=== PATIENT | male | born 1965 | race Caucasian/White ===

== ENCOUNTER 2021-01-09 06:24 | Observation (INO) | payer OTHER, MEDICAID, SELFPAY ==
[2021-01-09] VITALS (26 sets, daily range): BP systolic 92–145; BP diastolic 62–82; PULSE 57–86; RESP 12–23; TEMP 36.2–36.9; O2SAT 92–100; BMI 35.2
--- NOTE | 2021-01-09 06:29 | ED.GENADULT ---
HPI - General Adult <Stiven Fernandes DO - Last Filed: 01/09/21 18:00> General Chief complaint: Allergic Reaction Stated complaint: poss allergic reaction, dizzy Time Seen by Provider: 01/09/21 06:27 Source: patient and family Mode of arrival: Wheelchair Limitations: no limitations History of Present Illness HPI narrative: Patient is a 55 year old male who arrived to the emergency department by private vehicle with his for evaluation of what he thought was initially was an allergic reaction. He states that he woke up this morning with some abdominal discomfort. No nausea or vomiting. No problems breathing. Was a little nauseous. [place] very poorly and so asked his to bring him into the emergency department. He does not remember getting out of the car and his states that he was seemed very confused and passed out prior to triage. He is part breath to the exam room by wheelchair. Unsure as to why he thought he was having an allergic reaction. His only new medications were lidocaine patches and diclofenac but he has been on these medicines for greater than 1 month. Other than the abdominal discomfort denies chest pain or shortness of breath. Does have a slight headache. Related Data Home Medications Medication Instructions Recorded Confirmed diclofenac sodium 75 mg PO BID 01/09/21 01/09/21 lidocaine 1 patch TOPICAL DAILY 01/09/21 01/09/21 Allergies Allergy/AdvReac Type Severity Reaction Status Date / Time amoxicillin Allergy Hives Verified 01/09/21 06:46 codeine Allergy Hives Verified 01/09/21 06:46 ibuprofen Allergy Anaphylaxis Verified 01/09/21 06:46 Review of Systems <DO Loulou Reece Last Filed: 01/09/21 18:00> Constitutional Constitutional: Reports headache(s) Eyes Eyes: Denies change in vision ENT Ears, Nose, Mouth, and Throat: Reports headache(s), Reports disequilibrium and Denies sore throat Cardiovascular Cardiovascular: Denies chest pain and Denies dyspnea Respiratory Respiratory: Denies dyspnea Gastrointestinal Gastrointestinal: Reports abdominal pain, Denies melena, Denies change in bowel habits, Denies constipation, Denies cramping, Denies diarrhea, Reports nausea and Denies vomiting Genitourinary Genitourinary: Denies dysuria Genitourinary: Denies dysuria Musculoskeletal Musculoskeletal: Denies myalgias Integumentary/Breasts Skin/Breast: Denies lesions and Denies rash Neurologic Neurologic: Denies abnormal speech, Reports confusion, Reports headache(s) and Reports disequilibrium Psychiatric Psychiatric: Reports confusion Endocrine Endocrine: Reports flushing Hematologic/Lymphatic On Anticoagulants: No Allergic/Immunologic Allergic/Immunologic: Denies urticaria Patient History <Stiven Fernandes DO - Last Filed: 01/09/21 18:00> Medical History (Updated 01/09/21 @ 09:36 by Nellie Hsu RN) Chronic neck pain Migraines Psoriasis Social History household members: spouse Smoking Status: Former smoker Exam <Stiven Fernandes DO - Last Filed: 01/09/21 18:00> Initial Vital Signs Initial Vital Signs: Vital Signs Temperature 97.5 F L 01/09/21 06:27 Pulse Rate 78 01/09/21 06:27 Respiratory Rate 16 01/09/21 06:27 Blood Pressure 104/69 01/09/21 06:27 Pulse Oximetry 92 01/09/21 06:27 Const General: diaphoretic and ill appearing Limitations: mental status not altered HENNM Head: normal to inspection and normocephalic Eyes General: appearance normal, both eyes and all related structures Conjunctivae: conjunctival abnormality bilaterally pallor Resp Effort & Inspection: normal respiratory effort Auscultation: clear to auscultation bilaterally Cardio Rate: regular rate Rhythm: regular rhythm GI Inspection: non-distended Palpation: soft, No firm and No tender Skin General: pallor and cool/cold Neuro General: patient alert, patient awake and patient oriented x3 Cognition: normal cognition Speech: speech normal Extrem General: capillary refill normal and No edema Psych Appearance: grossly normal and well kempt <Eduardo Mccabe DO - Last Filed: 01/09/21 12:09> Initial Vital Signs Initial Vital Signs: Vital Signs Temperature 97.5 F L 01/09/21 06:27 Pulse Rate 78 01/09/21 06:27 Respiratory Rate 16 01/09/21 06:27 Blood Pressure 104/69 01/09/21 06:27 Pulse Oximetry 92 01/09/21 06:27 Scores <DO Loulou Reece Last Filed: 01/09/21 18:00> GCS [place] coma scale eye opening: Spontaneous Sheila coma scale verbal response: Orientated [place] coma scale motor response: Obey commands Sheila coma scale total score: 15 Course <Stiven Fernandes DO - Last Filed: 01/09/21 18:00> Orders Ordered: Acetaminophen (Acetaminophen 325 Mg Tablet) 650 mg PO Q6HR PRN PRN Reason: Fever/Mild Pain (1-3) Enoxaparin Sodium (Enoxaparin 40 Mg/0.4 Ml Syringe) 40 mg SUBCUT DAILY [facility] Gabapentin (Gabapentin 300 Mg Capsule) 300 mg PO TID [facility] Last Admin: 01/09/21 15:25 Dose: 300 mg Documented by: JANNA Naloxone HCl (Naloxone 0.4 Mg/Ml Vial) 0.2 mg IV Q2MIN PRN PRN Reason: Opiate Reversal Ondansetron HCl (Ondansetron 4 Mg Odt) 4 mg PO Q8HR PRN PRN Reason: Nausea And Vomiting Discontinued Medications Sodium Chloride (Normal Saline 0.9%) 1,000 mls @ 1,000 mls/hr IV BOLUS ONE Stop: 01/09/21 07:26 Last Infusion: 01/09/21 08:43 Dose: 0 mls/hr Documented by: Admin: 01/09/21 06:49 Dose: 1,000 mls/hr Documented by: ECHO Sodium Chloride (Normal Saline 0.9%) 1,000 mls @ 1,000 mls/hr IV BOLUS ONE Stop: 01/09/21 08:29 Last Infusion: 01/09/21 10:33 Dose: 0 mls/hr Documented by: Admin: 01/09/21 08:30 Dose: 1,000 mls/hr Documented by: LILLIE Ondansetron HCl (Ondansetron 4 Mg/2 Ml Inj) 4 mg IV NOW ONE Stop: 01/09/21 08:26 Last Admin: 01/09/21 08:28 Dose: 4 mg Documented by: GREY Vital Signs Vital signs: Vital Signs - 8 hr 01/09/21 10:30 01/09/21 11:00 01/09/21 11:01 Pulse Rate 61 63 65 Respiratory Rate 17 17 23 Blood Pressure 107/62 127/82 Pulse Oximetry 98 98 99 01/09/21 11:30 Pulse Rate 67 Respiratory Rate 17 Blood Pressure 114/77 Pulse Oximetry 98 <Eduardo Mccabe DO - Last Filed: 01/09/21 12:09> Course Course Narrative: Patient received in sign-out from other provider at the end of their shift. I have performed an independent history and physical and have no significant additional findings. Orders Ordered: Acetaminophen (Acetaminophen 325 Mg Tablet) 650 mg PO Q6HR PRN PRN Reason: Fever/Mild Pain (1-3) Enoxaparin Sodium (Enoxaparin 40 Mg/0.4 Ml Syringe) 40 mg SUBCUT DAILY [facility] Gabapentin (Gabapentin 300 Mg Capsule) 300 mg PO TID [facility] Last Admin: 01/09/21 15:25 Dose: 300 mg Documented by: JANNA Naloxone HCl (Naloxone 0.4 Mg/Ml Vial) 0.2 mg IV Q2MIN PRN PRN Reason: Opiate Reversal Ondansetron HCl (Ondansetron 4 Mg Odt) 4 mg PO Q8HR PRN PRN Reason: Nausea And Vomiting Discontinued Medications Sodium Chloride (Normal Saline 0.9%) 1,000 mls @ 1,000 mls/hr IV BOLUS ONE Stop: 01/09/21 07:26 Last Infusion: 01/09/21 08:43 Dose: 0 mls/hr Documented by: Admin: 01/09/21 06:49 Dose: 1,000 mls/hr Documented by: ECHO Sodium Chloride (Normal Saline 0.9%) 1,000 mls @ 1,000 mls/hr IV BOLUS ONE Stop: 01/09/21 08:29 Last Infusion: 01/09/21 10:33 Dose: 0 mls/hr Documented by: Admin: 01/09/21 08:30 Dose: 1,000 mls/hr Documented by: LILLIE Ondansetron HCl (Ondansetron 4 Mg/2 Ml Inj) 4 mg IV NOW ONE Stop: 01/09/21 08:26 Last Admin: 01/09/21 08:28 Dose: 4 mg Documented by: GREY Reevaluation(s) Reevaluation #1: Patient continues to rest comfortably, blood pressure in the 110s, heart rate in the 70s, no chest pain or shortness of breath, no diaphoresis, minimal nausea and mild abdominal pain. His lactate did come back at 4.9 but this is thought to be due to a pathway other than sepsis as the patient has had no fever or chills, otherwise vitals are stable and I do not suspect infection at this point in time. Time: 07:30 Reevaluation #2: called to see patient, vomiting, no pain Time: 08:46 Consultations Consultation #1: discussed with rehabilitation teacher cardio (Justyn), he has reviewed EKGs and there are no concerning findings. Trop x2 is reassuring. Recommends OBS Tele given unprovoked syncope Vital Signs Vital signs: Vital Signs - 8 hr 01/09/21 10:30 01/09/21 11:00 01/09/21 11:01 Pulse Rate 61 63 65 Respiratory Rate 17 17 23 Blood Pressure 107/62 127/82 Pulse Oximetry 98 98 99 01/09/21 11:30 Pulse Rate 67 Respiratory Rate 17 Blood Pressure 114/77 Pulse Oximetry 98 Medical Decision Making <Stiven Fernandes, - Last Filed: 01/09/21 18:00> Lab Data Lab results reviewed: Yes I reviewed the patient's lab results. Result diagrams: 01/09/21 06:35 01/09/21 06:35 Labs: Lab Results 01/09/21 01/09/21 01/09/21 Range/Units 06:35 06:35 06:35 WBC 10.2 (4.5-11.0) X10^3/uL RBC 5.81 (4.5-5.9) X10^6/uL Hgb 17.1 (13.5-17.5) g/dL Hct 51.9 (41-53) % MCV 89.3 (80-100) fL MCH 29.5 (26-34) PG MCHC 33.0 (30-36) % RDW 13.3 (11.6-14.8) % Plt Count 409 H (150-400) X10^3/uL Neut % (Auto) Not Reportable Lymph % (Auto) Not Reportable [place] % (Auto) Not Reportable Eos % (Auto) Not Reportable Baso % (Auto) Not Reportable Lymph # (Auto) Not Reportable [place] # (Auto) Not Reportable Baso # (Auto) Not Reportable Total Counted 100 Seg Neutrophils % 26.0 L (38-70) % Band Neutrophils % 6.0 (3-7) % Lymphocytes % (Manual) 20.0 L (25-45) % Atypical Lymphs % 41.0 H ( - 0) % Monocytes % (Manual) 3.0 (2-11) % Eosinophils % (Manual) 4.0 (2-4) % Neutrophils # (Manual) 3264 (7727-7283) /uL RBC Morphology Normal morphology Sodium 138 (137-145) mmol/L Potassium 3.4 (3.4-5.1) mmol/L Chloride 107 (98-107) mmol/L Carbon Dioxide 20 L (22-32) mmol/L BUN 15 (9-20) mg/dL Creatinine 1.40 H (0.66-1.25) mg/dL Estimated GFR 52.8 L (>60) mL/min BUN/Creatinine Ratio 10.7 (6-22) Glucose 167 H (70-100) mg/dL Lactate 4.9 H* (0.7-2.1) mmol/L Calcium 8.6 (8.4-10.2) mg/dL Magnesium (1.6-2.3) mg/dL Total Bilirubin 0.4 (0.2-1.3) mg/dL AST 26 (17-59) IU/L ALT 24 (<50) IU/L Alkaline Phosphatase 82 (38-126) U/L Total Creatine Kinase 82 (55-170) U/L CK-MB (CK-2) TNP CK-MB (CK-2) Rel Index TNP Troponin I < 0.012 (0.01-0.034) ng/mL Total Protein 7.3 (6.3-8.2) g/dL Albumin 3.8 (3.5-5.0) g/dL Globulin 3.5 (1.7-4.1) g/dL Albumin/Globulin Ratio 1.1 (1.0-2.8) Lipase 161 (23-300) U/L SARS-CoV-2 (PCR) (Negative) 01/09/21 01/09/21 01/09/21 Range/Units 06:35 06:55 08:50 WBC (4.5-11.0) X10^3/uL RBC (4.5-5.9) X10^6/uL Hgb (13.5-17.5) g/dL Hct (41-53) % MCV (80-100) fL MCH (26-34) PG MCHC (30-36) % RDW (11.6-14.8) % Plt Count (150-400) X10^3/uL Neut % (Auto) Lymph % (Auto) [place] % (Auto) Eos % (Auto) Baso % (Auto) Lymph # (Auto) [place] # (Auto) Baso # (Auto) Total Counted Seg Neutrophils % (38-70) % Band Neutrophils % (3-7) % Lymphocytes % (Manual) (25-45) % Atypical Lymphs % ( - 0) % Monocytes % (Manual) (2-11) % Eosinophils % (Manual) (2-4) % Neutrophils # (Manual) (5521-1569) /uL RBC Morphology Sodium (137-145) mmol/L Potassium (3.4-5.1) mmol/L Chloride (98-107) mmol/L Carbon Dioxide (22-32) mmol/L BUN (9-20) mg/dL Creatinine (0.66-1.25) mg/dL Estimated GFR (>60) mL/min BUN/Creatinine Ratio (6-22) Glucose (70-100) mg/dL Lactate (0.7-2.1) mmol/L Calcium (8.4-10.2) mg/dL Magnesium 2.1 (1.6-2.3) mg/dL Total Bilirubin (0.2-1.3) mg/dL AST (17-59) IU/L ALT (<50) IU/L Alkaline Phosphatase (38-126) U/L Total Creatine Kinase (55-170) U/L CK-MB (CK-2) CK-MB (CK-2) Rel Index Troponin I < 0.012 (0.01-0.034) ng/mL Total Protein (6.3-8.2) g/dL Albumin (3.5-5.0) g/dL Globulin (1.7-4.1) g/dL Albumin/Globulin Ratio (1.0-2.8) Lipase (23-300) U/L SARS-CoV-2 (PCR) Negative (Negative) 01/09/21 Range/Units 08:50 WBC (4.5-11.0) X10^3/uL RBC (4.5-5.9) X10^6/uL Hgb (13.5-17.5) g/dL Hct (41-53) % MCV (80-100) fL MCH (26-34) PG MCHC (30-36) % RDW (11.6-14.8) % Plt Count (150-400) X10^3/uL Neut % (Auto) Lymph % (Auto) [place] % (Auto) Eos % (Auto) Baso % (Auto) Lymph # (Auto) [place] # (Auto) Baso # (Auto) Total Counted Seg Neutrophils % (38-70) % Band Neutrophils % (3-7) % Lymphocytes % (Manual) (25-45) % Atypical Lymphs % ( - 0) % Monocytes % (Manual) (2-11) % Eosinophils % (Manual) (2-4) % Neutrophils # (Manual) (7100-1575) /uL RBC Morphology Sodium (137-145) mmol/L Potassium (3.4-5.1) mmol/L Chloride (98-107) mmol/L Carbon Dioxide (22-32) mmol/L BUN (9-20) mg/dL Creatinine (0.66-1.25) mg/dL Estimated GFR (>60) mL/min BUN/Creatinine Ratio (6-22) Glucose (70-100) mg/dL Lactate 2.6 H (0.7-2.1) mmol/L Calcium (8.4-10.2) mg/dL Magnesium (1.6-2.3) mg/dL Total Bilirubin (0.2-1.3) mg/dL AST (17-59) IU/L ALT (<50) IU/L Alkaline Phosphatase (38-126) U/L Total Creatine Kinase (55-170) U/L CK-MB (CK-2) CK-MB (CK-2) Rel Index Troponin I (0.01-0.034) ng/mL Total Protein (6.3-8.2) g/dL Albumin (3.5-5.0) g/dL Globulin (1.7-4.1) g/dL Albumin/Globulin Ratio (1.0-2.8) Lipase (23-300) U/L SARS-CoV-2 (PCR) (Negative) Point of Care Testing Glucose POC 171 Point of care testing: Point of Care Testing Glucose POC 171 ECG Data Attestation: I personally reviewed and interpreted this ECG as follows: Prior ECG tracings: not available for review Interpretation: Sinus rhythm Ventricular rate is [address] T wave changes MDM Narrative Medical decision making narrative: Pale upon arrival however alert oriented x3. Blood pressure was systolic between 100-110 however map was around 65. Given his abdominal discomfort, syncopal episode and the way that he arrived. There is concern about cardiac etiology and also aortic etiology. He is not anemic. He is not hypoglycemic. Aortic CT scan performed. Also concerned about ischemic bowel. Care turned over to Dr. Mccabe a change of shift to follow up. <Eduardo Mccabe, DO - Last Filed: 01/09/21 12:09> Lab Data Labs: Lab Results 01/09/21 01/09/21 01/09/21 Range/Units 06:35 06:35 06:35 WBC 10.2 (4.5-11.0) X10^3/uL RBC 5.81 (4.5-5.9) X10^6/uL Hgb 17.1 (13.5-17.5) g/dL Hct 51.9 (41-53) % MCV 89.3 (80-100) fL MCH 29.5 (26-34) PG MCHC 33.0 (30-36) % RDW 13.3 (11.6-14.8) % Plt Count 409 H (150-400) X10^3/uL Neut % (Auto) Not Reportable Lymph % (Auto) Not Reportable [place] % (Auto) Not Reportable Eos % (Auto) Not Reportable Baso % (Auto) Not Reportable Lymph # (Auto) Not Reportable [place] # (Auto) Not Reportable Baso # (Auto) Not Reportable Total Counted 100 Seg Neutrophils % 26.0 L (38-70) % Band Neutrophils % 6.0 (3-7) % Lymphocytes % (Manual) 20.0 L (25-45) % Atypical Lymphs % 41.0 H ( - 0) % Monocytes % (Manual) 3.0 (2-11) % Eosinophils % (Manual) 4.0 (2-4) % Neutrophils # (Manual) 3264 (5384-3271) /uL RBC Morphology Normal morphology Sodium 138 (137-145) mmol/L Potassium 3.4 (3.4-5.1) mmol/L Chloride 107 (98-107) mmol/L Carbon Dioxide 20 L (22-32) mmol/L BUN 15 (9-20) mg/dL Creatinine 1.40 H (0.66-1.25) mg/dL Estimated GFR 52.8 L (>60) mL/min BUN/Creatinine Ratio 10.7 (6-22) Glucose 167 H (70-100) mg/dL Lactate 4.9 H* (0.7-2.1) mmol/L Calcium 8.6 (8.4-10.2) mg/dL Magnesium (1.6-2.3) mg/dL Total Bilirubin 0.4 (0.2-1.3) mg/dL AST 26 (17-59) IU/L ALT 24 (<50) IU/L Alkaline Phosphatase 82 (38-126) U/L Total Creatine Kinase 82 (55-170) U/L CK-MB (CK-2) TNP CK-MB (CK-2) Rel Index TNP Troponin I < 0.012 (0.01-0.034) ng/mL Total Protein 7.3 (6.3-8.2) g/dL Albumin 3.8 (3.5-5.0) g/dL Globulin 3.5 (1.7-4.1) g/dL Albumin/Globulin Ratio 1.1 (1.0-2.8) Lipase 161 (23-300) U/L SARS-CoV-2 (PCR) (Negative) 01/09/21 01/09/21 01/09/21 Range/Units 06:35 06:55 08:50 WBC (4.5-11.0) X10^3/uL RBC (4.5-5.9) X10^6/uL Hgb (13.5-17.5) g/dL Hct (41-53) % MCV (80-100) fL MCH (26-34) PG MCHC (30-36) % RDW (11.6-14.8) % Plt Count (150-400) X10^3/uL Neut % (Auto) Lymph % (Auto) [place] % (Auto) Eos % (Auto) Baso % (Auto) Lymph # (Auto) [place] # (Auto) Baso # (Auto) Total Counted Seg Neutrophils % (38-70) % Band Neutrophils % (3-7) % Lymphocytes % (Manual) (25-45) % Atypical Lymphs % ( - 0) % Monocytes % (Manual) (2-11) % Eosinophils % (Manual) (2-4) % Neutrophils # (Manual) (0458-6846) /uL RBC Morphology Sodium (137-145) mmol/L Potassium (3.4-5.1) mmol/L Chloride (98-107) mmol/L Carbon Dioxide (22-32) mmol/L BUN (9-20) mg/dL Creatinine (0.66-1.25) mg/dL Estimated GFR (>60) mL/min BUN/Creatinine Ratio (6-22) Glucose (70-100) mg/dL Lactate (0.7-2.1) mmol/L Calcium (8.4-10.2) mg/dL Magnesium 2.1 (1.6-2.3) mg/dL Total Bilirubin (0.2-1.3) mg/dL AST (17-59) IU/L ALT (<50) IU/L Alkaline Phosphatase (38-126) U/L Total Creatine Kinase (55-170) U/L CK-MB (CK-2) CK-MB (CK-2) Rel Index Troponin I < 0.012 (0.01-0.034) ng/mL Total Protein (6.3-8.2) g/dL Albumin (3.5-5.0) g/dL Globulin (1.7-4.1) g/dL Albumin/Globulin Ratio (1.0-2.8) Lipase (23-300) U/L SARS-CoV-2 (PCR) Negative (Negative) 01/09/21 Range/Units 08:50 WBC (4.5-11.0) X10^3/uL RBC (4.5-5.9) X10^6/uL Hgb (13.5-17.5) g/dL Hct (41-53) % MCV (80-100) fL MCH (26-34) PG MCHC (30-36) % RDW (11.6-14.8) % Plt Count (150-400) X10^3/uL Neut % (Auto) Lymph % (Auto) [place] % (Auto) Eos % (Auto) Baso % (Auto) Lymph # (Auto) [place] # (Auto) Baso # (Auto) Total Counted Seg Neutrophils % (38-70) % Band Neutrophils % (3-7) % Lymphocytes % (Manual) (25-45) % Atypical Lymphs % ( - 0) % Monocytes % (Manual) (2-11) % Eosinophils % (Manual) (2-4) % Neutrophils # (Manual) (4134-4577) /uL RBC Morphology Sodium (137-145) mmol/L Potassium (3.4-5.1) mmol/L Chloride (98-107) mmol/L Carbon Dioxide (22-32) mmol/L BUN (9-20) mg/dL Creatinine (0.66-1.25) mg/dL Estimated GFR (>60) mL/min BUN/Creatinine Ratio (6-22) Glucose (70-100) mg/dL Lactate 2.6 H (0.7-2.1) mmol/L Calcium (8.4-10.2) mg/dL Magnesium (1.6-2.3) mg/dL Total Bilirubin (0.2-1.3) mg/dL AST (17-59) IU/L ALT (<50) IU/L Alkaline Phosphatase (38-126) U/L Total Creatine Kinase (55-170) U/L CK-MB (CK-2) CK-MB (CK-2) Rel Index Troponin I (0.01-0.034) ng/mL Total Protein (6.3-8.2) g/dL Albumin (3.5-5.0) g/dL Globulin (1.7-4.1) g/dL Albumin/Globulin Ratio (1.0-2.8) Lipase (23-300) U/L SARS-CoV-2 (PCR) (Negative) Point of Care Testing Glucose POC 171 Point of care testing: Point of Care Testing Glucose POC [address] scan - chest: Radiologist's Impression: 2 Eduardo Mccabe, DO Find Patient Imaging - Christina Mills Bravo 55 M 1965 ACTIVITY DATE EXAM STATUS AUTHOR 01/09/21 07:[address] [id number] Scan ReportSigned Patient: Christina Mills RenéeR#: [id number]: 1965Acct:[id number]/Sex: 55 / MDate of Service: 01/09/21Loc: EDAccession Number: [id number] Procedure: CT angio chest abdomen pelvis Ordering Provider: Stiven Fernandes D.O. PROCEDURE: CT ANGIO CHEST ABDOMEN PELVIS INDICATIONS: aortic aneurysm/dissection/ mid back pain TECHNIQUE: Precontrast 5 mm thick sections acquired from the lung apices to the iliac crests. After the administration of intravenous contrast, 2.5 mm thick sections again acquired from the lung apices to the iliac crests. Maximum intensity projection (MIP) oblique sagittal and coronal reformats were then acquired. For radiation dose reduction, the following was used: automated exposure control. COMPARISON: None. FINDINGS: Image quality: Excellent. AORTA: Intramural hematoma: Absent Maximum hematoma thickness: Not applicable. Focal contrast enhancement: Intramural blood pool (< 2 mm neck or imperceptible communication with aortic lumen): Absent. Ulcer-like projection (broad communication with aortic lumen > 3 mm): Absent. Dissection: Absent [place] classification: Not applicable Maximum aortic diameter: 3.5 cm. [If Jey A dissection, > 5.0 cm has a poorer prognosis. If Jey B dissection, > 4.0 cm has a poorer prognosis.] Periaortic hematoma: Absent. CHEST: Lungs and pleura: No acute airspace opacities. No pleural effusions or pneumothorax. Central and peripheral airways are patent and normal in caliber. Mediastinum: Heart size is normal. No pericardial effusion. No mediastinal or hilar adenopathy by size criteria. Central pulmonary arteries are normal in size. Esophagus is normal in caliber. Small hiatal hernia. Bones and chest wall: No axillary adenopathy by size criteria. Thyroid gland is normal. No suspicious bony lesions. No vertebral body compression fractures. ABDOMEN: Vasculature: Celiac trunk and mesenteric arteries are patent. Renal arteries are also patent. Solid organs: Liver is normal in size and enhancement. Gallbladder is normal. Biliary system is non dilated. Pancreas enhances normally. Spleen is normal in size and enhancement. No adrenal nodules. Both kidneys are normal in size and enhancement, without hydronephrosis. Peritoneum and bowel: No free fluid or air. Bowel loops are normal in caliber and wall thickness. Few scattered colonic diverticula without evidence of diverticulosis. The appendix is normal. Nodes and vessels: No retroperitoneal or mesenteric adenopathy by size criteria. Inferior vena cava is normal in morphology. Miscellaneous: Small fat containing umbilical hernia. PELVIS: Genitourinary: Bladder wall thickness is normal. Miscellaneous: No inguinal adenopathy. Small bilateral fat containing inguinal hernias. No ventral hernias. Bones: No suspicious bony lesions. No vertebral body compression fractures. Spine degenerative disc disease and facet arthropathy. IMPRESSION: 1. No aortic dissection or aortic aneurysm. 2. No acute disease process. 3. No lung consolidation or pleural fluid collections. 4. No free intraperitoneal fluid or air. Dictated by: Christiane Cowart MD, PhD on 01/09/2021 at 7:32 Approved by: Christiane Cowart MD, PhD on 01/09/2021 at 7:39 ECG Data Interpretation: EKG #1: EKG #2: Sinus bradycardia with rate 56, no noted ST segmental elevations or depressions, no T-wave abnormalities such as peaking or inversions. P are 160, QRS 96, QT 447 EKG #3: Sinus bradycardia with rate 59, perhaps subtle P are depressions in lead 2, no obvious occlusive findings such as ST elevation, depression, peak T-waves, inverted T-waves. P are 156, QRS 94, QT 454 EKG #4: no noted change MDM Narrative Medical decision making narrative: 55-year-old ill-appearing male with 2 unprovoked syncopal episodes has reassuring lab work, EKG show no ischemic change or significant arrhythmia. Multiple diagnoses including dissection, AAA, MD, pulmonary embolism considered but thought unlikely given lack of significant findings. He has had some abdominal pain (no findings on CT) along with N/V, but episodes of syncope are not obviously related to this, nor change in position or other. Patient will need hospitalization for monitoring Discharge Plan Departure Patient Disposition: Admitted as Observation Admit Date/Time: 01/09/21 11:49 Admit Provider: Major Stoddard
[2021-01-09 06:48] LABS: Hematocrit 51.9 % (41-53); Hemoglobin 17.1 g/dL (13.5-17.5); Mean Corpuscular Hemoglobin 29.5 PG (26-34); Mean Corpuscular Volume 89.3 fL (80-100); Platelet Count 409 X10^3/uL (150-400); Red Blood Cell Count 5.81 X10^6/uL (4.5-5.9); Red Cell Distribution Width 13.3 % (11.6-14.8); White Blood Cell Count 10.2 X10^3/uL (4.5-11.0)
[2021-01-09] MEDS: SODIUM CHLORIDE 0.9% 1,000 ML 1000 ML IV ×2 (06:49→08:30)
[2021-01-09 06:50] LABS: Add Manual Diff / Slide Review YES
[2021-01-09 06:58] LABS: Alanine Aminotransferase 24 IU/L (<50); Albumin 3.8 g/dL (3.5-5.0); Albumin Globulin Ratio 1.1 (1.0-2.8); Alkaline Phosphatase 82 U/L (38-126); Aspartate Aminotransferase 26 IU/L (17-59); BUN Creatinine Ratio 10.7 (6-22); Bilirubin Total 0.4 mg/dL (0.2-1.3); Blood Urea Nitrogen 15 mg/dL (9-20); Calcium 8.6 mg/dL (8.4-10.2); Carbon Dioxide 20 mmol/L (22-32); Chloride 107 mmol/L (98-107); Creatine Kinase 82 U/L (55-170); Estimated Glomerular Filt Rate 52.8 mL/min (>60); Globulin 3.5 g/dL (1.7-4.1); Glucose 167 mg/dL (70-100); HEMOLYSIS 20 (0-50); Lipase 161 U/L (23-300); Potassium 3.4 mmol/L (3.4-5.1); Sodium 138 mmol/L (137-145); Total Protein 7.3 g/dL (6.3-8.2)
[2021-01-09 07:09] LABS: Troponin I < 0.012 ng/mL (0.01-0.034)
[2021-01-09 07:18] LABS: Lactate (Lactic Acid) 4.9 mmol/L (0.7-2.1)
--- NOTE | 2021-01-09 07:22 | DI.CT.S_ITS ---
PROCEDURE: CT ANGIO CHEST ABDOMEN PELVIS INDICATIONS: aortic aneurysm/dissection/ mid back pain TECHNIQUE: Precontrast 5 mm thick sections acquired from the lung apices to the iliac crests. After the administration of intravenous contrast, 2.5 mm thick sections again acquired from the lung apices to the iliac crests. Maximum intensity projection (MIP) oblique sagittal and coronal reformats were then acquired. For radiation dose reduction, the following was used: automated exposure control. COMPARISON: None. FINDINGS: Image quality: Excellent. AORTA: Intramural hematoma: Absent Maximum hematoma thickness: Not applicable. Focal contrast enhancement: Intramural blood pool (< 2 mm neck or imperceptible communication with aortic lumen): Absent. Ulcer-like projection (broad communication with aortic lumen > 3 mm): Absent. Dissection: Absent Jey classification: Not applicable Maximum aortic diameter: 3.5 cm. [If [place] A dissection, > 5.0 cm has a poorer prognosis. If [place] B dissection, > 4.0 cm has a poorer prognosis.] Periaortic hematoma: Absent. CHEST: Lungs and pleura: No acute airspace opacities. No pleural effusions or pneumothorax. Central and peripheral airways are patent and normal in caliber. Mediastinum: Heart size is normal. No pericardial effusion. No mediastinal or hilar adenopathy by size criteria. Central pulmonary arteries are normal in size. Esophagus is normal in caliber. Small hiatal hernia. Bones and chest wall: No axillary adenopathy by size criteria. Thyroid gland is normal. No suspicious bony lesions. No vertebral body compression fractures. ABDOMEN: Vasculature: Celiac trunk and mesenteric arteries are patent. Renal arteries are also patent. Solid organs: Liver is normal in size and enhancement. Gallbladder is normal. Biliary system is non dilated. Pancreas enhances normally. Spleen is normal in size and enhancement. No adrenal nodules. Both kidneys are normal in size and enhancement, without hydronephrosis. Peritoneum and bowel: No free fluid or air. Bowel loops are normal in caliber and wall thickness. Few scattered colonic diverticula without evidence of diverticulosis. The appendix is normal. Nodes and vessels: No retroperitoneal or mesenteric adenopathy by size criteria. Inferior vena cava is normal in morphology. Miscellaneous: Small fat containing umbilical hernia. PELVIS: Genitourinary: Bladder wall thickness is normal. Miscellaneous: No inguinal adenopathy. Small bilateral fat containing inguinal hernias. No ventral hernias. Bones: No suspicious bony lesions. No vertebral body compression fractures. Spine degenerative disc disease and facet arthropathy. IMPRESSION: 1. No aortic dissection or aortic aneurysm. 2. No acute disease process. 3. No lung consolidation or pleural fluid collections. 4. No free intraperitoneal fluid or air. Dictated by: Christiane Cowart MD, PhD on 01/09/2021 at 7:32 Approved by: Christiane Cowart MD, PhD on 01/09/2021 at 7:39
[2021-01-09 07:33] LABS: Neutrophils Absolute Manual 3264 /uL (3000-5900); RBC Morphology Normal Morphology; Total Cells Counted 100
[2021-01-09 07:50] LABS: COVID19 - ADMIT (NP swab/PCR) Negative (Negative)
--- NOTE | 2021-01-09 07:56 | DI.ECHO.S_ITS ---
[facility]---------+ [facility] +---------+ : : [id number] : : : : [id number] : : : : Phone: [phone] Echocardiogram Report + + :Name: KEVIN BRASWELL Study Date: 01/09/2021 Height: 72 in : :[facility] ReadingLocation: Weight: 260 lb : : Gender: Male BSA: 2.4 m2 : :: 1965 Age: 55 yrs BP: 104/69 mmHg: :Reason For Study: SYNCOPE, DIAPHORESIS : :Ordering Physician: VICTORIA, : :SALINAS Performed By: Annmarie Jackson : :Referring: SALINAS KESSLER : + + Interpretation Summary The left ventricle is normal in size and wall thickness. The ejection fraction is estimated to be 60-65%. The right ventricle is at the upper limits of normal in size. The right ventricular systolic function is normal. No significant valvular pathology seen. Procedure: A two-dimensional transthoracic echocardiogram with color flow and Doppler was performed. The study quality was technically adequate. A contrast injection of Definity was performed to improve assessment of LV function. The patient had occasional PVCs during the exam. The patient was in sinus bradycardia with heart rates between 54-66 bpm during the exam. Left Ventricle: The left ventricle is normal in size and wall thickness. There is no thrombus. The ejection fraction is estimated to be 60-65%. There are no focal wall motion abnormalities. MV E/A: 1.1 Med Peak E' Giovanny: 9.2 cm/sec E/E' med: 7.8. Right Ventricle: The right ventricle is at the upper limits of normal in size. The right ventricular systolic function is normal. Atria: Both atria are normal in size. There is no Doppler evidence for an interatrial shunt. Mitral Valve: There is mild mitral annular calcification. There is trace mitral regurgitation. Aortic Valve: The aortic valve is trileaflet. The aortic valve opens well. There is no aortic valve stenosis. No aortic regurgitation is present. Tricuspid Valve: The tricuspid valve is normal. There is trace tricuspid regurgitation. Pulmonary artery pressures cannot be estimated because of the lack of a measurable TR jet velocity. Pulmonic Valve: The pulmonic valve is not well seen, but is grossly normal. There is no pulmonic valvular regurgitation. Great Vessels: The aortic root is normal size. The ascending aorta is normal in size. The inferior vena cava was not well visualized. Pericardium/ Pleura There is no pericardial effusion. There is no pleural effusion. MMode/2D Measurements & Calculations LVIDd: 4.9 cm LVOT diam: 2.3 cm LVIDs: 3.4 cm Ao root diam: 3.4 cm FS: 30.1 % asc Aorta Diam: 3.5 cm EPSS: 0.35 cm IVSd: 0.81 cm LVPWd: 0.81 cm LV dolwing. diameter/BSA (cm/m^2): 2.1 LV sys. diameter/BSA (cm/m^2): 1.4 LA A2 area: 22.5 cm2 RA long axis: 5.1 cm LA A4 area: 15.8 cm2 RA area: 15.9 cm2 LA length (vol): 5.4 cm RA vol: 42.4 ml LA vol: 55.9 ml RA : 17.8 ml/m2 LA vol index: 23.5 ml/m2 RVD1 (basal): 4.1 cm TAPSE: 2.0 cm Doppler Measurements & Calculations Ao V2 max: 121.1 cm/sec LVOT Max Giovanny: 84.9 cm/sec Ao V2 mean: 87.7 cm/sec LV V1 max P.9 mmHg Ao max P.9 mmHg LV V1 VTI: 18.1 cm Ao mean P.4 mmHg PETE(I,D): 3.0 cm2 Ao V2 VTI: 24.6 cm PETE(V,D): 2.8 cm2 sev ratio: 0.74 PETE indexed to BSA (cm^2/m^2): 1.3 MV E max giovanny: 71.3 cm/sec PA V2 max: 82.7 cm/sec MV A max giovanny: 66.6 cm/sec PA V2 mean: 52.3 cm/sec MV E/A: 1.1 PA mean P.3 mmHg Med Peak E' Giovanny: 9.2 cm/sec PA pr(Accel): 28.9 mmHg E/E' med: 7.8 Lat Peak E' Giovanny: 8.4 cm/sec E/E' lat: 8.5 E/e' average: 8.1 MV dec time: 0.20 sec SV(LVOT): 73.1 ml Reading Physician:12:11 PM
[2021-01-09] MEDS: ONDANSETRON 4 MG/2 ML INJ IV (08:28)
[2021-01-09 08:42] LABS: Reflexed Lactate in 2 Hours Y
--- NOTE | 2021-01-09 08:42 | PC.NURSE ---
Patient was up to commode. Had episode of diarrhea and vomiting x 1. Hives have resolved, patient not longer reports any dizziness, just reports general unwell feeling. Color is pale. Skin is cool and clammy.
[2021-01-09 09:13] LABS: Lactate 2HR (Lactic Acid Rflx) 2.6 mmol/L (0.7-2.1)
[2021-01-09 09:26] LABS: Troponin I < 0.012 ng/mL (0.01-0.034)
[2021-01-09 13:43] LABS: Magnesium 2.1 mg/dL (1.6-2.3)
--- NOTE | 2021-01-09 14:08 | P.HP_ITS ---
History of Present Illness History of Present Illness Date Patient Seen: 01/09/21 Time Patient Seen: 14:08 Date of Onset of Symptoms: 01/09/21 Chief complaint: poss allergic reaction, dizzy Narrative: This is a 55-year-old male with a past medical history of psoriasis, chronic neck pain and cervicogenic headaches who presented to the emergency room with a suspected allergic reaction. Patient states that for the past 2 days he has had his usual headache, yesterday evening it started to increased slightly so he took 2 tabs of diclofenac. His headache persisted so he took 975 mg of Tylenol prior to going to bed. He then woke up at around 5:45 a.m. with diffuse abdominal cramping type pain and worsened headache. He also noticed that his hands and fingers were swollen, and noted a morbilliform rash on his thighs. Patient states in the past when he has taken ibuprofen or naproxen he had lip swelling and so he can no longer take it. He suspected a drug reaction and took 2 Benadryl and decided to come to the emergency room. When getting his temperature screened, he had a syncopal episode that was witnessed. He did not have any recollection of the event. His states that he was out of consciousness for about a minute before fully regaining consciousness. Prior to this syncopal episode, his face felt hot but the temperature screener was having a difficult time getting an accurate temperature on him. He denies any chest pain, palpitations, shortness of breath, lower extremity edema. In the emergency room, his initial vital signs were unremarkable. CBC showed no remarkable abnormalities. Chemistry show a creatinine of 1.4, with an unknown baseline, and mild acidosis with a bicarb of 20. Glucose was 167, initial lactate was 4.9 which improved to 2.[address] angiogram of his chest abdomen pelvis was performed which showed no acute abnormalities. Echocardiogram was performed which showed a normal ejection fraction with no significant valvular pathologies. EKG shows normal sinus rhythm without evidence of acute ischemia. Case was discussed with Cardiology who recommended further monitoring overnight for monitoring for possible arrhythmia and for monitoring of his elevated lactate. Patient History Medical History (Updated 01/09/21 @ 09:36 by Nellie Hsu RN) Chronic neck pain Migraines Psoriasis Family & Social History Social History: household members spouse Prior Living Arrangements House Safety & Behavioral: Feels Safe in Current Yes Environment Been Physically Hurt or No Threatened By a Person Suicidal Ideation Description None Suicide Plan Description No Plan Tobacco & Substance use: Smoking Status Former smoker alcohol intake frequency 0-2 drinks per day Substance Use Type marijuana Meds Home Medications and Allergies Home Medications Medication Instructions Recorded Confirmed Type diclofenac sodium 75 mg PO BID 01/09/21 01/09/21 History lidocaine 1 patch TOPICAL DAILY 01/09/21 01/09/21 History Allergies Allergy/AdvReac Type Severity Reaction Status Date / Time amoxicillin Allergy Hives Verified 01/09/21 06:46 codeine Allergy Hives Verified 01/09/21 06:46 ibuprofen Allergy Anaphylaxis Verified 01/09/21 06:46 Review of Systems Review of Systems Narrative: All other systems reviewed with the patient and are negative unless otherwise stated. Exam Vital Signs (past 8 hours): - 01/09/21 06:27 01/09/21 06:48 01/09/21 07:00 Temperature 97.5 F L Pulse Rate 78 63 60 Respiratory Rate 16 18 20 Blood Pressure 104/69 Pulse Oximetry 92 93 94 01/09/21 07:01 01/09/21 07:04 01/09/21 07:17 Temperature Pulse Rate 58 L 57 L 60 Respiratory Rate 17 19 Blood Pressure 92/62 109/63 116/70 Pulse Oximetry 95 94 100 01/09/21 07:30 01/09/21 08:00 01/09/21 08:01 Temperature Pulse Rate 60 59 L 60 Respiratory Rate 22 19 14 Blood Pressure 121/62 114/70 Pulse Oximetry 99 100 99 01/09/21 08:30 01/09/21 09:00 01/09/21 09:30 Temperature Pulse Rate 62 59 L 61 Respiratory Rate 12 21 20 Blood Pressure 120/82 125/72 127/77 Pulse Oximetry 99 95 98 01/09/21 10:00 01/09/21 10:30 01/09/21 11:00 Temperature Pulse Rate 70 61 63 Respiratory Rate 19 17 17 Blood Pressure 111/65 107/62 Pulse Oximetry 96 98 98 01/09/21 11:01 01/09/21 11:30 01/09/21 12:00 Temperature Pulse Rate 65 67 63 Respiratory Rate 23 17 18 Blood Pressure 127/82 114/77 123/74 Pulse Oximetry 99 98 97 01/09/21 12:30 01/09/21 13:00 01/09/21 14:01 Temperature 97.2 F L Pulse Rate 64 63 67 Respiratory Rate 20 18 18 Blood Pressure 107/71 121/71 145/74 H Pulse Oximetry 96 97 98 Oxygen Delivery Method Room Air Oxygen Flow Rate 0 Narrative Exam Narrative: GENERAL APPEARANCE: Well developed, well nourished, in no acute distress. SKIN: Inspection of the skin bilateral lower extremity psoriatic plaques which h ave been scraped off due to itching. No other rashes or lesions. HEENT: Normocephalic atraumatic, extraocular muscles are intact, oropharynx is clear and mucous membranes are moist, neck is supple without adenopathy NECK: Supple and symmetric. There was no thyroid enlargement, and no tenderness, or masses were felt. CHEST: Normal AP diameter and normal contour without any kyphoscoliosis. LUNGS: Auscultation of the lungs revealed no wheezes, rhonchi, or rales. CARDIOVASCULAR: There was a regular rate and rhythm without any murmurs, gallops, rubs. Peripheral pulses were 2+ and symmetric. ABDOMEN: Soft and nontender with normal bowel sounds. MUSCULOSKELETAL: There was no tenderness or effusions noted. Muscle strength and tone were normal. EXTREMITIES: No cyanosis, clubbing or edema. Patient states that upper extremities are swollen compared to usual. NEUROLOGIC: Alert and oriented x 3. Normal affect. Strength is +5/5 in the Upper Extremities and Lower Extremities Bilaterally. Sensation to touch was normal. Objective ECG Impression: Normal sinus rhythm Imaging CTA Chest abd/pel: Radiologist's impression: PROCEDURE: CT ANGIO CHEST ABDOMEN PELVIS INDICATIONS: aortic aneurysm/dissection/ mid back pain TECHNIQUE: Precontrast 5 mm thick sections acquired from the lung apices to the iliac crests. After the administration of intravenous contrast, 2.5 mm thick sections again acquired from the lung apices to the iliac crests. Maximum intensity projection (MIP) oblique sagittal and coronal reformats were then acquired. For radiation dose reduction, the following was used: automated exposure control. COMPARISON: None. FINDINGS: Image quality: Excellent. AORTA: Intramural hematoma: Absent Maximum hematoma thickness: Not applicable. Focal contrast enhancement: Intramural blood pool (< 2 mm neck or imperceptible communication with aortic lumen): Absent. Ulcer-like projection (broad communication with aortic lumen > 3 mm): Absent. Dissection: Absent Jey classification: Not applicable Maximum aortic diameter: 3.5 cm. [If [place] A dissection, > 5.0 cm has a poorer prognosis. If [place] B dissection, > 4.0 cm has a poorer prognosis.] Periaortic hematoma: Absent. CHEST: Lungs and pleura: No acute airspace opacities. No pleural effusions or pneumothorax. Central and peripheral airways are patent and normal in caliber. Mediastinum: Heart size is normal. No pericardial effusion. No mediastinal or hilar adenopathy by size criteria. Central pulmonary arteries are normal in size. Esophagus is normal in caliber. Small hiatal hernia. Bones and chest wall: No axillary adenopathy by size criteria. Thyroid gland is normal. No suspicious bony lesions. No vertebral body compression fractures. ABDOMEN: Vasculature: Celiac trunk and mesenteric arteries are patent. Renal arteries are also patent. Solid organs: Liver is normal in size and enhancement. Gallbladder is normal. Biliary system is non dilated. Pancreas enhances normally. Spleen is normal in size and enhancement. No adrenal nodules. Both kidneys are normal in size and enhancement, without hydronephrosis. Peritoneum and bowel: No free fluid or air. Bowel loops are normal in caliber and wall thickness. Few scattered colonic diverticula without evidence of diverticulosis. The appendix is normal. Nodes and vessels: No retroperitoneal or mesenteric adenopathy by size criteria. Inferior vena cava is normal in morphology. Miscellaneous: Small fat containing umbilical hernia. PELVIS: Genitourinary: Bladder wall thickness is normal. Miscellaneous: No inguinal adenopathy. Small bilateral fat containing inguinal hernias. No ventral hernias. Bones: No suspicious bony lesions. No vertebral body compression fractures. Spine degenerative disc disease and facet arthropathy. IMPRESSION: 1. No aortic dissection or aortic aneurysm. 2. No acute disease process. 3. No lung consolidation or pleural fluid collections. 4. No free intraperitoneal fluid or air. Labs Result Diagrams: 01/09/21 06:35 01/09/21 06:35 Labs: Laboratory Results - last 24 hr 01/09/21 01/09/21 01/09/21 06:35 06:35 06:35 WBC 10.2 RBC 5.81 Hgb 17.1 Hct 51.9 MCV 89.3 MCH 29.5 MCHC 33.0 RDW 13.3 Plt Count 409 H Neut % (Auto) Not Reportable Lymph % (Auto) Not Reportable [place] % (Auto) Not Reportable Eos % (Auto) Not Reportable Baso % (Auto) Not Reportable Lymph # (Auto) Not Reportable [place] # (Auto) Not Reportable Baso # (Auto) Not Reportable Total Counted 100 Seg Neutrophils % 26.0 L Band Neutrophils % 6.0 Lymphocytes % (Manual) 20.0 L Atypical Lymphs % 41.0 H Monocytes % (Manual) 3.0 Eosinophils % (Manual) 4.0 Neutrophils # (Manual) 3264 RBC Morphology Normal morphology Sodium 138 Potassium 3.4 Chloride 107 Carbon Dioxide 20 L BUN 15 Creatinine 1.40 H Estimated GFR 52.8 L BUN/Creatinine Ratio 10.7 Glucose 167 H Lactate 4.9 H* Calcium 8.6 Magnesium Total Bilirubin 0.4 AST 26 ALT 24 Alkaline Phosphatase 82 Total Creatine Kinase 82 CK-MB (CK-2) TNP CK-MB (CK-2) Rel Index TNP Troponin I < 0.012 Total Protein 7.3 Albumin 3.8 Globulin 3.5 Albumin/Globulin Ratio 1.1 Lipase 161 SARS-CoV-2 (PCR) 01/09/21 01/09/21 01/09/21 06:35 06:55 08:50 WBC RBC Hgb Hct MCV MCH MCHC RDW Plt Count Neut % (Auto) Lymph % (Auto) [place] % (Auto) Eos % (Auto) Baso % (Auto) Lymph # (Auto) [place] # (Auto) Baso # (Auto) Total Counted Seg Neutrophils % Band Neutrophils % Lymphocytes % (Manual) Atypical Lymphs % Monocytes % (Manual) Eosinophils % (Manual) Neutrophils # (Manual) RBC Morphology Sodium Potassium Chloride Carbon Dioxide BUN Creatinine Estimated GFR BUN/Creatinine Ratio Glucose Lactate Calcium Magnesium 2.1 Total Bilirubin AST ALT Alkaline Phosphatase Total Creatine Kinase CK-MB (CK-2) CK-MB (CK-2) Rel Index Troponin I < 0.012 Total Protein Albumin Globulin Albumin/Globulin Ratio Lipase SARS-CoV-2 (PCR) Negative 01/09/21 08:50 WBC RBC Hgb Hct MCV MCH MCHC RDW Plt Count Neut % (Auto) Lymph % (Auto) [place] % (Auto) Eos % (Auto) Baso % (Auto) Lymph # (Auto) [place] # (Auto) Baso # (Auto) Total Counted Seg Neutrophils % Band Neutrophils % Lymphocytes % (Manual) Atypical Lymphs % Monocytes % (Manual) Eosinophils % (Manual) Neutrophils # (Manual) RBC Morphology Sodium Potassium Chloride Carbon Dioxide BUN Creatinine Estimated GFR BUN/Creatinine Ratio Glucose Lactate 2.6 H Calcium Magnesium Total Bilirubin AST ALT Alkaline Phosphatase Total Creatine Kinase CK-MB (CK-2) CK-MB (CK-2) Rel Index Troponin I Total Protein Albumin Globulin Albumin/Globulin Ratio Lipase SARS-CoV-2 (PCR) Assessment & Plan Assessment & Plan narrative: This is a 55-year-old male with a past medical history of psoriasis, chronic neck pain and cervicogenic headaches who presented to the emergency room with a suspected allergic reaction. He was admitted after a syncopal episode in the triage area for further monitoring. 1. Syncope -patient reports prior history of what is likely angioedema secondary to NSAIDs. His symptoms started after taking two tabs of diclofenac, which may have produced uticarial reaction which has now improved. -history sounds consistent with an orthostatic or benign syncope, EKG shows no signs of ischemia and patient had an echocardiogram or any in the emergency room which showed a normal ejection fraction and no significant valvular pathologies. -will continue to monitor overnight given Cardiology recommendations for possible arrhythmia, however this seems unlikely at this time. -avoid NSAID 2. Chronic neck pain - continue lidocaine patch, will avoid NSAIDs for pain. Will trial gabapentin. 3. Suspected allergic reaction / uticaria - as noted above suspect probable uticarial reaction to 150 mg of diclofenac. No need to add steroids or benadryl at this time but will continue to monitor. 4. Psoriasis, chronic - can continue home cream if patient desires. 5. Elevated lactic acid, acute, present on admission - continue to trend, improved with fluids, suspect secondary to above probable allergic / uticarial reaction. 6. Elevated creatinine, present on admission - creatinine 1.4 on admission, unknown baseline but may be elevated in setting of uticarial reaction. Will continue monitor, also will stop NSAID use. Code: full, patient elects his surrogate decision maker as his spouse. Dispo: Admitted under observation as his stay is not expected to exceed 2 midnights DVT prophylaxis: Lovenox daily Quality VTE Deep Vein Thrombosis/Pulmonary Embolism Present on Admission: No
--- NOTE | 2021-01-09 14:20 | PC.NURSE ---
Assumed care of patient from the ED. Patient A/O x 4. Patient denies N/V, reports intermittent abdominal pain with cramping, non-tender to palpitation. Patient tolerating food. HR normal, patient on tele, pulses equal. Lungs CTA, patient 98% RA, denies SOB. Saline locked at this time. Patient denies headache at this time. Patient has scaly, red abrasions related to psoriasis on bilat lower extremities. Call light in reach. Instructed to call before getting OOB. Patient verbalized understanding.
[2021-01-09] MEDS: GABAPENTIN 300 MG CAPSULE PO ×2 (15:25→21:46)
--- NOTE | 2021-01-09 20:54 | ED.ALLEREA ---
HPI - Allergic Reaction General Chief complaint: Allergic Reaction Stated complaint: poss allergic reaction, dizzy Time Seen by Provider: 01/09/21 06:27 Source: patient and family Mode of arrival: Wheelchair Limitations: no limitations Related Data Home Medications Medication Instructions Recorded Confirmed lidocaine 1 patch TOPICAL DAILY 01/09/21 01/09/21 Previous Rx's Medication Instructions Recorded gabapentin [Neurontin] 300 mg PO TID 30 Days #90 cap 01/10/21 Allergies Allergy/AdvReac Type Severity Reaction Status Date / Time amoxicillin Allergy Hives Verified 01/09/21 06:46 codeine Allergy Hives Verified 01/09/21 06:46 ibuprofen Allergy Anaphylaxis Verified 01/09/21 06:46 Review of Systems Constitutional Constitutional: Reports headache(s) ENT Ears, Nose, Mouth, and Throat: Reports headache(s) and Reports disequilibrium Neurologic Neurologic: Denies abnormal speech, Reports confusion, Reports headache(s) and Reports disequilibrium Psychiatric Psychiatric: Reports confusion Patient History Medical History (Updated 01/09/21 @ 20:54 by Eduardo Mccabe DO) Chronic neck pain Migraines Psoriasis Social History household members: spouse Smoking Status: Former smoker Smoking Status: Former smoker alcohol intake frequency: 0-2 drinks per day Substance Use Type: marijuana Exam Initial Vital Signs Initial Vital Signs: Vital Signs Temperature 97.5 F L 01/09/21 06:27 Pulse Rate 78 01/09/21 06:27 Respiratory Rate 16 01/09/21 06:27 Blood Pressure 104/69 01/09/21 06:27 Pulse Oximetry 92 01/09/21 06:27 Course Orders Ordered: Discontinued Medications Acetaminophen (Acetaminophen 325 Mg Tablet) 650 mg PO Q6HR PRN PRN Reason: Fever/Mild Pain (1-3) Enoxaparin Sodium (Enoxaparin 40 Mg/0.4 Ml Syringe) 40 mg SUBCUT DAILY [facility] Last Admin: 01/10/21 08:36 Dose: Not Given Documented by: LINDA Gabapentin (Gabapentin 300 Mg Capsule) 300 mg PO TID [facility] Last Admin: 01/10/21 08:34 Dose: 300 mg Documented by: Admin: 01/09/21 21:46 Dose: 300 mg Documented by: Admin: 01/09/21 15:25 Dose: 300 mg Documented by: JANNA Sodium Chloride (Normal Saline 0.9%) 1,000 mls @ 1,000 mls/hr IV BOLUS ONE Stop: 01/09/21 07:26 Last Infusion: 01/09/21 08:43 Dose: 0 mls/hr Documented by: Admin: 01/09/21 06:49 Dose: 1,000 mls/hr Documented by: ECHO Sodium Chloride (Normal Saline 0.9%) 1,000 mls @ 1,000 mls/hr IV BOLUS ONE Stop: 01/09/21 08:29 Last Infusion: 01/09/21 10:33 Dose: 0 mls/hr Documented by: Admin: 01/09/21 08:30 Dose: 1,000 mls/hr Documented by: LILLIE Naloxone HCl (Naloxone 0.4 Mg/Ml Vial) 0.2 mg IV Q2MIN PRN PRN Reason: Opiate Reversal Ondansetron HCl (Ondansetron 4 Mg/2 Ml Inj) 4 mg IV NOW ONE Stop: 01/09/21 08:26 Last Admin: 01/09/21 08:28 Dose: 4 mg Documented by: GREY Ondansetron HCl (Ondansetron 4 Mg Odt) 4 mg PO Q8HR PRN PRN Reason: Nausea And Vomiting MDM - Allergic Reaction Lab Data Result diagrams: 01/10/21 04:53 01/10/21 04:53 Labs: Lab Results 01/09/21 01/09/21 01/09/21 Range/Units 06:35 06:35 06:35 WBC 10.2 (4.5-11.0) X10^3/uL RBC 5.81 (4.5-5.9) X10^6/uL Hgb 17.1 (13.5-17.5) g/dL Hct 51.9 (41-53) % MCV 89.3 (80-100) fL MCH 29.5 (26-34) PG MCHC 33.0 (30-36) % RDW 13.3 (11.6-14.8) % Plt Count 409 H (150-400) X10^3/uL Neut % (Auto) Not Reportable Lymph % (Auto) Not Reportable [place] % (Auto) Not Reportable Eos % (Auto) Not Reportable Baso % (Auto) Not Reportable Lymph # (Auto) Not Reportable [place] # (Auto) Not Reportable Baso # (Auto) Not Reportable Total Counted 100 Seg Neutrophils % 26.0 L (38-70) % Band Neutrophils % 6.0 (3-7) % Lymphocytes % (Manual) 20.0 L (25-45) % Atypical Lymphs % 41.0 H ( - 0) % Monocytes % (Manual) 3.0 (2-11) % Eosinophils % (Manual) 4.0 (2-4) % Neutrophils # (Manual) 3264 (7713-1991) /uL RBC Morphology Normal morphology Sodium 138 (137-145) mmol/L Potassium 3.4 (3.4-5.1) mmol/L Chloride 107 (98-107) mmol/L Carbon Dioxide 20 L (22-32) mmol/L BUN 15 (9-20) mg/dL Creatinine 1.40 H (0.66-1.25) mg/dL Estimated GFR 52.8 L (>60) mL/min BUN/Creatinine Ratio 10.7 (6-22) Glucose 167 H (70-100) mg/dL Lactate 4.9 H* (0.7-2.1) mmol/L Calcium 8.6 (8.4-10.2) mg/dL Magnesium (1.6-2.3) mg/dL Total Bilirubin 0.4 (0.2-1.3) mg/dL AST 26 (17-59) IU/L ALT 24 (<50) IU/L Alkaline Phosphatase 82 (38-126) U/L Total Creatine Kinase 82 (55-170) U/L CK-MB (CK-2) TNP CK-MB (CK-2) Rel Index TNP Troponin I < 0.012 (0.01-0.034) ng/mL Total Protein 7.3 (6.3-8.2) g/dL Albumin 3.8 (3.5-5.0) g/dL Globulin 3.5 (1.7-4.1) g/dL Albumin/Globulin Ratio 1.1 (1.0-2.8) Lipase 161 (23-300) U/L SARS-CoV-2 (PCR) (Negative) 05/17/21 05/17/21 05/17/21 Range/Units 06:35 06:55 08:50 WBC (4.5-11.0) X10^3/uL RBC (4.5-5.9) X10^6/uL Hgb (13.5-17.5) g/dL Hct (41-53) % MCV (80-100) fL MCH (26-34) PG MCHC (30-36) % RDW (11.6-14.8) % Plt Count (150-400) X10^3/uL Neut % (Auto) Lymph % (Auto) [place] % (Auto) Eos % (Auto) Baso % (Auto) Lymph # (Auto) [place] # (Auto) Baso # (Auto) Total Counted Seg Neutrophils % (38-70) % Band Neutrophils % (3-7) % Lymphocytes % (Manual) (25-45) % Atypical Lymphs % ( - 0) % Monocytes % (Manual) (2-11) % Eosinophils % (Manual) (2-4) % Neutrophils # (Manual) (0578-1896) /uL RBC Morphology Sodium (137-145) mmol/L Potassium (3.4-5.1) mmol/L Chloride (98-107) mmol/L Carbon Dioxide (22-32) mmol/L BUN (9-20) mg/dL Creatinine (0.66-1.25) mg/dL Estimated GFR (>60) mL/min BUN/Creatinine Ratio (6-22) Glucose (70-100) mg/dL Lactate (0.7-2.1) mmol/L Calcium (8.4-10.2) mg/dL Magnesium 2.1 (1.6-2.3) mg/dL Total Bilirubin (0.2-1.3) mg/dL AST (17-59) IU/L ALT (<50) IU/L Alkaline Phosphatase (38-126) U/L Total Creatine Kinase (55-170) U/L CK-MB (CK-2) CK-MB (CK-2) Rel Index Troponin I < 0.012 (0.01-0.034) ng/mL Total Protein (6.3-8.2) g/dL Albumin (3.5-5.0) g/dL Globulin (1.7-4.1) g/dL Albumin/Globulin Ratio (1.0-2.8) Lipase (23-300) U/L SARS-CoV-2 (PCR) Negative (Negative) 01/09/21 Range/Units 08:50 WBC (4.5-11.0) X10^3/uL RBC (4.5-5.9) X10^6/uL Hgb (13.5-17.5) g/dL Hct (41-53) % MCV (80-100) fL MCH (26-34) PG MCHC (30-36) % RDW (11.6-14.8) % Plt Count (150-400) X10^3/uL Neut % (Auto) Lymph % (Auto) [place] % (Auto) Eos % (Auto) Baso % (Auto) Lymph # (Auto) [place] # (Auto) Baso # (Auto) Total Counted Seg Neutrophils % (38-70) % Band Neutrophils % (3-7) % Lymphocytes % (Manual) (25-45) % Atypical Lymphs % ( - 0) % Monocytes % (Manual) (2-11) % Eosinophils % (Manual) (2-4) % Neutrophils # (Manual) (2128-3006) /uL RBC Morphology Sodium (137-145) mmol/L Potassium (3.4-5.1) mmol/L Chloride (98-107) mmol/L Carbon Dioxide (22-32) mmol/L BUN (9-20) mg/dL Creatinine (0.66-1.25) mg/dL Estimated GFR (>60) mL/min BUN/Creatinine Ratio (6-22) Glucose (70-100) mg/dL Lactate 2.6 H (0.7-2.1) mmol/L Calcium (8.4-10.2) mg/dL Magnesium (1.6-2.3) mg/dL Total Bilirubin (0.2-1.3) mg/dL AST (17-59) IU/L ALT (<50) IU/L Alkaline Phosphatase (38-126) U/L Total Creatine Kinase (55-170) U/L CK-MB (CK-2) CK-MB (CK-2) Rel Index Troponin I (0.01-0.034) ng/mL Total Protein (6.3-8.2) g/dL Albumin (3.5-5.0) g/dL Globulin (1.7-4.1) g/dL Albumin/Globulin Ratio (1.0-2.8) Lipase (23-300) U/L SARS-CoV-2 (PCR) (Negative) Point of Care Testing Glucose POC 171 Discharge Plan Departure Patient Disposition: Admitted as Observation Clinical Impression: Syncope Qualifiers: Syncope type: unspecified Qualified Code(s): R55 - Syncope and collapse Admit Date/Time: 01/09/21 11:49 Admit Provider: Major Stoddard
[2021-01-10 02:08] VITALS: O2SAT 97
[2021-01-10 05:16] LABS: Add Manual Diff / Slide Review NO; Basophils Absolute Auto 100 /uL (0-100); Basophils Percent Auto 1.1 % (0-2); Eosinophils Absolute Auto 1600 /uL (0-450); Eosinophils Percent Auto 16.5 % (2-4); Hematocrit 44.2 % (41-53); Hemoglobin 14.9 g/dL (13.5-17.5); Lymphocytes Absolute Auto 1800 /uL (1100-4500); Lymphocytes Percent Auto 19.5 % (25-40); Mean Corpuscular HGB Conc 33.6 % (30-36); Mean Corpuscular Hemoglobin 29.9 PG (26-34); Monocytes Absolute Auto 600 /uL (0-900); Monocytes Percent Auto 6.8 % (3-14); Neutrophils Absolute Auto 5300 /uL (1500-7000); Neutrophils Percent Auto 56.1 % (50-75); Platelet Count 242 X10^3/uL (150-400); Red Blood Cell Count 4.97 X10^6/uL (4.5-5.9); Red Cell Distribution Width 13.2 % (11.6-14.8); White Blood Cell Count 9.5 X10^3/uL (4.5-11.0)
[2021-01-10 05:29] VITALS: BP 137/69; PULSE 72; RESP 18; TEMP 36.4; O2SAT 98
[2021-01-10 05:35] LABS: Alanine Aminotransferase 22 IU/L (<50); Albumin 3.5 g/dL (3.5-5.0); Albumin Globulin Ratio 1.1 (1.0-2.8); Alkaline Phosphatase 57 U/L (38-126); Aspartate Aminotransferase 23 IU/L (17-59); Bilirubin Total 0.4 mg/dL (0.2-1.3); Blood Urea Nitrogen 16 mg/dL (9-20); Calcium 8.3 mg/dL (8.4-10.2); Carbon Dioxide 26 mmol/L (22-32); Chloride 109 mmol/L (98-107); Estimated Glomerular Filt Rate > 60.0 mL/min (>60); Globulin 3.2 g/dL (1.7-4.1); Glucose 109 mg/dL (70-100); HEMOLYSIS < 15 (0-50); Potassium 4.7 mmol/L (3.4-5.1); Sodium 139 mmol/L (137-145); Total Protein 6.7 g/dL (6.3-8.2)
[2021-01-10 05:43] VITALS: BP 115/68; BP 120/70; BP 124/77; PULSE 66; PULSE 77; PULSE 95
[2021-01-10 05:49] LABS: Hemoglobin A1C% w Est Avg Glu 5.4 % (4.0-6.0)
[2021-01-10 06:33] VITALS: O2SAT 98
[2021-01-10 07:40] VITALS: O2SAT 96
[2021-01-10 08:00] VITALS: BP 104/78; BP 113/68; BP 114/72; PULSE 64; PULSE 66; PULSE 71; PULSE 75; RESP 18; TEMP 36.7; O2SAT 97
--- NOTE | 2021-01-10 08:22 | P.DS_ITS ---
History of Present Illness History of Present Illness Date Patient Seen: 01/10/21 Time Patient Seen: 08:22 Chief complaint: poss allergic reaction, dizzy Narrative: This is a 55-year-old male with a past medical history of psoriasis, chronic neck pain and cervicogenic headaches who presented to the emergency room with a suspected allergic reaction. Patient states that for the past 2 days he has had his usual headache, yesterday evening it started to increased slightly so he took 2 tabs of diclofenac. His headache persisted so he took 975 mg of Tylenol prior to going to bed. He then woke up at around 5:45 a.m. with diffuse abdominal cramping type pain and worsened headache. He also noticed that his hands and fingers were swollen, and noted a morbilliform rash on his thighs. Patient states in the past when he has taken ibuprofen or naproxen he had lip swelling and so he can no longer take it. He suspected a drug reaction and took 2 Benadryl and decided to come to the emergency room. When getting his temperature screened, he had a syncopal episode that was witnessed. He did not have any recollection of the event. His states that he was out of consciousness for about a minute before fully regaining consciousness. Prior to this syncopal episode, his face felt hot but the temperature screener was having a difficult time getting an accurate temperature on him. He denies any chest pain, palpitations, shortness of breath, lower extremity edema. In the emergency room, his initial vital signs were unremarkable. CBC showed no remarkable abnormalities. Chemistry show a creatinine of 1.4, with an unknown baseline, and mild acidosis with a bicarb of 20. Glucose was 167, initial lactate was 4.9 which improved to 2.[address] angiogram of his chest abdomen pelvis was performed which showed no acute abnormalities. Echocard iogram was performed which showed a normal ejection fraction with no significant valvular pathologies. EKG shows normal sinus rhythm without evidence of acute ischemia. Case was discussed with Cardiology who recommended further monitoring overnight for monitoring for possible arrhythmia and for monitoring of his elevated lactate. Discharge Providers Provider Date of admission: 01/09/21 11:49 Discharge Date: 01/10/21 Discharge provider: Major Stoddard DO Summary Hospital Course Discharge Diagnosis: Please see hospital course by problem list noted below Hospital Course: This is a 55-year-old male with a past medical history of psoriasis, chronic neck pain and cervicogenic headaches who presented to the emergency room with a suspected allergic reaction. He was admitted after a syncopal episode in the triage area for further monitoring. He had an extensive evaluation in the emergency room including CT angiogram of his chest and abdomen which showed no acute abnormalities and an echocardiogram which was completely normal. Cardiology did recommend that he be monitored overnight for possible arrhythmia. The patient had no recurrent episodes of syncope and no recurrence of his presenting symptoms, and no significant events on telemetry. He was discharged the following morning and recommended to follow-up with his primary care provider. Given reaction to probable NSAID medications, he was discharged on a trial of gabapentin to help with his chronic neck pain. 1. Syncope -patient reports prior history of what is likely angioedema secondary to NSAIDs. His symptoms started after taking two tabs of diclofenac, which may have produced uticarial reaction which has now improved. -history sounds consistent with an orthostatic or benign syncope, EKG shows no signs of ischemia and patient had an echocardiogram or any in the emergency room which showed a normal ejection fraction and no significant valvular pathologies. -no significant events were noted on telemetry monitoring overnight, consider outpatient Holter monitor with primary care provider. -avoid NSAID medications in the future. 2. Chronic neck pain - continued lidocaine patch, will avoid NSAIDs for pain. Patient had no significant side effects with gabapentin and he is interested in trialing this is an outpatient. Thirty day prescription was sent, recommend further follow-up with primary care provider for further management of his neck pain. 3. Suspected allergic reaction / uticaria - as noted above suspect probable uticarial reaction to 150 mg of diclofenac. No recurrence of symptoms during his admission. 4. Psoriasis, chronic - no medication changes are recommend 5. Elevated lactic acid, acute, present on admission - continue to trend, improved with fluids, suspect secondary to above probable allergic / uticarial reaction. 6. Elevated creatinine, present on admission - creatinine 1.4 on admission, unknown baseline but may be elevated in setting of uticarial reaction. Improved slightly to 1.23 the following day. Recommend further PCP follow up and discontinuation of NSAID medications. Code: full, patient elects his surrogate decision maker as his spouse. Status at Discharge Cognitive/behavioral status at discharge: oriented Functional status at discharge: independent ambulation Overall status at discharge: patient is back to baseline Time Spent with Patient Time spent: Less than 30 minutes Exam Vital Signs (past 8 hours): - 01/10/21 02:08 01/10/21 05:29 01/10/21 05:43 Temperature 97.6 F Pulse Rate 72 Pulse Rate [Orthostatic Lying] 66 Pulse Rate [Orthostatic Sitting] 77 Pulse Rate [Orthostatic Standing] 95 H Respiratory Rate 18 Blood Pressure 137/69 Blood Pressure [Orthostatic Lying] 115/68 Blood Pressure [Orthostatic Sitting] 120/70 Blood Pressure [Orthostatic Standing] 124/77 Pulse Oximetry 97 98 01/10/21 06:33 01/10/21 07:40 Temperature Pulse Rate Pulse Rate [Orthostatic Lying] Pulse Rate [Orthostatic Sitting] Pulse Rate [Orthostatic Standing] Respiratory Rate Blood Pressure Blood Pressure [Orthostatic Lying] Blood Pressure [Orthostatic Sitting] Blood Pressure [Orthostatic Standing] Pulse Oximetry 98 96 Oxygen Delivery Method Room Air Oxygen Flow Rate 0 Narrative Exam Narrative: GENERAL APPEARANCE: Well developed, well nourished, in no acute distress. SKIN: Inspection of the skin bilateral lower extremity psoriatic plaques which have been scraped off due to itching. No other rashes or lesions. HEENT: Normocephalic atraumatic, extraocular muscles are intact, oropharynx is clear and mucous membranes are moist, neck is supple without adenopathy NECK: Supple and symmetric. There was no thyroid enlargement, and no tenderness, or masses were felt. CHEST: Normal AP diameter and normal contour without any kyphoscoliosis. LUNGS: Auscultation of the lungs revealed no wheezes, rhonchi, or rales. CARDIOVASCULAR: There was a regular rate and rhythm without any murmurs, gallops, rubs. Peripheral pulses were 2+ and symmetric. ABDOMEN: Soft and nontender with normal bowel sounds. MUSCULOSKELETAL: There was no tenderness or effusions noted. Muscle strength and tone were normal. EXTREMITIES: No cyanosis, clubbing or edema. Patient states that upper extremities are swollen compared to usual. NEUROLOGIC: Alert and oriented x 3. Normal affect. Strength is +5/5 in the Upper Extremities and Lower Extremities Bilaterally. Sensation to touch was normal. Objective Labs Result Diagrams: 01/10/21 04:53 01/10/21 04:53 Labs: Laboratory Results - last 24 hr 01/09/21 01/09/21 01/09/21 06:35 08:50 08:50 WBC RBC Hgb Hct MCV MCH MCHC RDW Plt Count Neut % (Auto) Lymph % (Auto) [place] % (Auto) Eos % (Auto) Baso % (Auto) Neut # (Auto) Lymph # (Auto) [place] # (Auto) Eos # (Auto) Baso # (Auto) Sodium Potassium Chloride Carbon Dioxide BUN Creatinine Estimated GFR BUN/Creatinine Ratio Glucose Hemoglobin A1c Lactate 2.6 H Calcium Magnesium 2.1 Total Bilirubin AST ALT Alkaline Phosphatase Troponin I < 0.012 Total Protein Albumin Globulin Albumin/Globulin Ratio 01/10/21 01/10/21 01/10/21 04:53 04:53 04:53 WBC 9.5 RBC 4.97 Hgb 14.9 Hct 44.2 MCV 89.0 MCH 29.9 MCHC 33.6 RDW 13.2 Plt Count 242 Neut % (Auto) 56.1 Lymph % (Auto) 19.5 L [place] % (Auto) 6.8 Eos % (Auto) 16.5 H Baso % (Auto) 1.1 Neut # (Auto) 5300 Lymph # (Auto) 1800 [place] # (Auto) 600 Eos # (Auto) 1600 H Baso # (Auto) 100 Sodium 139 Potassium 4.7 D Chloride 109 H Carbon Dioxide 26 BUN 16 Creatinine 1.23 Estimated GFR > 60.0 BUN/Creatinine Ratio 13.0 Glucose 109 H Hemoglobin A1c 5.4 Lactate Calcium 8.3 L Magnesium 2.0 Total Bilirubin 0.4 AST 23 ALT 22 Alkaline Phosphatase 57 Troponin I Total Protein 6.7 Albumin 3.5 Globulin 3.2 Albumin/Globulin Ratio 1.1 [facility] Medical History (Updated 01/09/21 @ 20:54 by Eduardo Mccabe DO) Chronic neck pain Migraines Psoriasis Social History household members: spouse Smoking Status: Former smoker Discharge Plan Discharge Plan Patient Disposition: Home Provider Discharge Comment: You were admitted to the hospital after a syncopal episode. No serious cardiac source was found and it appears the most likely etiology was a medication reaction probably to diclofenac. I have sent a medication called gabapentin you can try. Please follow up with your PCP in a couple of weeks to reassess this medication and see about possibly having a holter monitor. Discharge orders & Medications Prescriptions: New gabapentin [Neurontin] 300 mg Capsule 300 mg PO TID 30 Days Qty: 90 RF: 0 Continued lidocaine 5 % adhesive patch,medicated 1 patch topical DAILY RF: 0 Discontinued diclofenac sodium 75 mg tablet,delayed release (DR/EC) 75 mg PO BID RF: 0 Diet/Activity/Treatments Diet: Diet as Tolerated Activity: As tolerated Visit Report/Discharge Packet Instructions: DI for Prescription Opioid Use, Gabapentin Discharge Data Attending Provider: Major Stoddard VTE Deep Vein Thrombosis/Pulmonary Embolism Present on Admission: No
[2021-01-10] MEDS: GABAPENTIN 300 MG CAPSULE PO (08:34)
--- NOTE | 2021-01-10 10:02 | PC.NURSE ---
DI given to pt and spouse, discussed- medications, f/u appts, s/s of stroke, worsening symptoms, reasons to seek medical attention. All questions answered. IV removed, intact. Pt left via w/c accompanied by RN, to POV.
--- NOTE | 2021-01-10 11:04 | CM.DANOTE ---
DCP: Case received, EMR reviewed and met with patient. , Christina, was also at bedside. Introduced self and role. Was able to obtain information from patient regarding his baseline activity status prior to his hospitalization. DCP assessment completed with information currently available. Patient is a 55 year old male who admitted yesterday morning to the care of the hospitalist team. PCP: Dr. Liz Watson. Payer: confirmed: [facility] [employer]. Patient came to the hospital via private vehicle secondary to possible allergic reaction. Patient had been noting itching, weakness, dizziness. According to notes, he had taken 2 tablets of Diclofenac for his neck discomfort. Patient also noted elevated lactate. He was diagnosed with Syncope, secondary to angioedema from NSAIDS. Met with patient and spouse in the room. Patient was feeling better, pleasant. He and indicated that he went to the ER for these symptoms, and went faint. He mentioned, there are some things I don't quite remember. He indicated that instead of taking the one tablet, he decided to take two, due to his cervical discomfort, and developed these symptoms. Patient and have a [place] address, but indicated that it is their daughter's home. They reside here in [place] at [facility]. They spend some time with their daughter in [place] as well. He is independent at his baseline. P: Patient has discharge orders for home today with no needs. Aliza Ellis RN/Casework Specialist
== END 2021-01-10 10:10 | disposition home or self-care (01) ==
LOC: ED 07:27 → AC 11:50
PROVIDERS: Emergency Medicine; Admitting Provider Internal Medicine; Emergency Provider Emergency Medicine; Referring Provider Emergency Medicine; Visit Provider Internal Medicine
DX: R10.9 Unspecified abdominal pain (principal); R55 Syncope and collapse; G89.29 Other chronic pain; M50.90 Cervical disc disorder, unspecified, unspecified cervical region; L40.9 Psoriasis, unspecified; R74.02 Elevation of levels of lactic acid dehydrogenase [LDH]; R79.89 Other specified abnormal findings of blood chemistry; G44.89 Other headache syndrome; Z20.822 Contact with and (suspected) exposure to COVID-19
CPT/HCPCS: 36415; 36592; 71275; 74174; 80053; 82550; 82962; 83036; 83605; 83690; 83735; 84484; 85007; 85025; 87635; 93005; 93010; 96361; 96374; 99285; C9803; G0378; C8929; J2405; Q9957; Q9967